=== PATIENT | female | born 1965 | race African-American/Black ===

== ENCOUNTER 2024-10-02 16:12 | Emergency (ER) | payer SELFPAY ==
[~2024-10-02] VITALS: Ht 170.2 cm; Wt 75.0 kg
[~2024-10-02 16:12] MED LIST: AMLO-257 PO; HYDR25TA2 PO
[2024-10-02 16:16] VITALS: BP 140/94; PULSE 111; RESP 18; TEMP 98.6; O2SAT 99
== END 2024-10-02 17:45 | disposition left against medical advice (07) ==
LOC: EMS 16:14
DX: M54.9 Dorsalgia, unspecified (principal); Z53.21 Procedure and treatment not carried out due to patient leaving prior to being seen by health care provider